=== PATIENT | male | born 1975 ===

== ENCOUNTER 2018-02-27 12:55 | Emergency (ER) | payer BC, OTHER ==
[2018-02-27 15:49] VITALS: BP 178/105
--- NOTE | 2018-02-27 16:08 | ED ---
Throat Pain/Nasal Congestion - HPI Summary HPI Summary: Patient is an otherwise healthy 42-year-old male presenting to the ED with small erythematous area to the bottom right eyelid. He states he was using a grinding machine 2 days ago, and developed this small mass one day later. He denies any pain, blurry vision, double vision, tearing from the eye or other symptoms. He has never had anything like this before. He does not recall getting a foreign body into the eye and the eye has not been irritated. - History of Current Complaint Chief Complaint: EDEyeProblem Time Seen by Provider: 02/27/18 14:45 Hx Obtained From: Patient Onset/Duration: Sudden Onset Severity: Moderate Associated Signs And Symptoms: Positive: Negative - Epiglottits Risk Factors Epiglottis Risk Factors: Negative - Allergies/Home Medications Allergies/Adverse Reactions: Allergies Allergy/AdvReac Type Severity Reaction Status Date / Time No Known Allergies Allergy Verified 02/27/18 12:57 PMH/Surg Hx/FS Hx/Imm Hx Previously Healthy: Yes Sensory History: Denies: Hx Contacts or Glasses Opthamlomology History: Denies: Hx Contacts or Glasses - Surgical History Surgery Procedure, Year, and Place: 1995 vasectomy 'S OFFICE Hx Anesthesia Reactions: No - Immunization History Date of Tetanus Vaccine: 2012 Hx Pertussis Vaccination: No Immunizations Up to Date: Yes Infectious Disease History: No Infectious Disease History: Denies: Traveled Outside the [place] in Last 30 Days - Social History Occupation: Employed Full-time Lives: With Family Alcohol Use: None Hx Substance Use: No Substance Use Type: Reports: None Hx Tobacco Use: No Smoking Status (MU): Never Smoked Tobacco Have You Smoked in the Last Year: No Review of Systems Constitutional: Negative Negative: Fever, Chills, Fatigue Positive: Other - stye to the R lower lid. Negative: Blurred Vision, Diplopia, Drainage, Erythema Negative: Palpitations, Chest Pain Negative: Shortness Of Breath, Cough Genitourinary: Negative Positive: no symptoms reported, see HPI Skin: Negative Negative: Headache All Other Systems Reviewed And Are Negative: Yes Physical Exam Triage Information Reviewed: Yes Vital Signs On Initial Exam: Initial Vitals Temp Pulse Resp BP Pulse Ox 97.3 F 70 14 142/84 93 02/27/18 12:57 02/27/18 12:57 02/27/18 12:57 02/27/18 12:57 02/27/18 12:57 Vital Signs Reviewed: Yes Appearance: Positive: Well-Appearing, Well-Nourished Skin: Positive: Warm, Skin Color Reflects Adequate Perfusion, Other - small erythematous area to the right lower lid Head/Face: Positive: Normal Head/Face Inspection Eyes: Positive: EOMI, ABHINAV, Conjunctiva Clear, Other: - no conjunctival injection Neck: Positive: Supple, No Lymphadenopathy Respiratory/Lung Sounds: Positive: Clear to Auscultation, Breath Sounds Present Cardiovascular: Positive: RRR, Pulses are Symmetrical in both Upper and Lower Extremities Musculoskeletal: Positive: Normal, Strength/ROM Intact Neurological: Positive: Sensory/Motor Intact, Alert, Oriented to Person Place, Time Psychiatric: Positive: Normal, Affect/Mood Appropriate Diagnostics - Vital Signs Vital Signs Temp Pulse Resp BP Pulse Ox 02/27/18 15:49 98 F 60 16 178/105 98 02/27/18 12:57 97.3 F 70 14 142/84 93 - Laboratory Lab Statement: Any lab studies that have been ordered have been reviewed, and results considered in the medical decision making process. EENT Course/Dx - Course Course Of Treatment: On physical examination, there is a small erythematous area to the right lower lid resembling a stye. There is no signs of entrapment , no conjunctival injection, hemorrhage, hyphema. Visual acuity is 20/20 bilaterally. Fluorescein uptake shows no evidence of a foreign body and no corneal abrasion. He will be diagnosed with a stye. He will follow up with ophthalmology if this becomes larger or he develops any blurry vision or double vision secondary to this. He is encouraged warm compresses. - Differential Diagnoses Differential Diagnoses: Other - Foreign-body, hordeolum, chalazion - Diagnoses Provider Diagnoses: Stye Discharge - Sign-Out/Discharge Documenting (check all that apply): Patient Departure - Discharge Plan Condition: Stable Disposition: HOME Patient Education Materials: Stye (ED) Referrals: No Primary Care Phys,NOPCP [Primary Care Provider] - Almas Lozada MD [Medical Doctor] - Additional Instructions: Please follow-up with Dr. Lozada if he develop any worsening symptoms Warm compresses to the eye as much as possible - Billing Disposition and Condition Condition: STABLE Disposition: Home
== END 2018-02-27 15:49 | disposition home or self-care (01) ==
LOC: ED 12:55
DX: H00.012 Hordeolum externum right lower eyelid (principal)
CPT/HCPCS: 99282